=== PATIENT | male | born 1970 | race African-American/Black ===

== ENCOUNTER 2016-08-08 09:20 | Emergency (ER) | payer MEDICAID ==
[~2016-08-08] VITALS: Ht 180.3 cm; Wt 108.9 kg
[~2016-08-08 09:20] MED LIST: CARI-316 PO; HYDR-2595 PO; ZOLP10TA PO
[2016-08-08 09:29] VITALS: BP 101/67
[2016-08-08] MEDS ORDERED: KETOROLAC TROMETH 60MG/2ML VIAL IM ONE (11:00)
== END 2016-08-08 11:38 | disposition home or self-care (01) ==
LOC: ER 09:20
DX: S76.011A Strain of muscle, fascia and tendon of right hip, initial encounter (principal); M89.8X8 Other specified disorders of bone, other site; X58.XXXA Exposure to other specified factors, initial encounter; Y93.89 Activity, other specified; Y92.89 Other specified places as the place of occurrence of the external cause; Y99.8 Other external cause status
CPT/HCPCS: 73502; 96372; 99284; J1885

== ENCOUNTER 2020-10-11 10:20 | Emergency (ER) | payer MEDICAID ==
[~2020-10-11] VITALS: Ht 180.3 cm; Wt 108.9 kg
[~2020-10-11 10:20] MED LIST changes: -CARI-316 PO; +CARI350T22 PO
[2020-10-11 11:05] LABS: Basophils # (auto) 0.1 10 ^3/uL (0-0.2); Basophils % (auto) 1.3 % (0.0-2.0); Eosinophils # (auto) 0 10 ^3/uL (0-0.8); Eosinophils % (auto) 0.2 % (0.0-7.0); Hematocrit 41.4 % (41.0-53.0); Hemoglobin 14.7 g/dL (13.5-17.5); Lymphocytes # (auto) 1.5 10 ^3/uL (0.4-5.4); Mean Corpuscular Hemoglobin 32.3 pg (28.0-32.0); Mean Corpuscular Hgb Conc. 35.5 g/dL (32.0-36.0); Monocytes # (auto) 0.9 10 ^3/uL (0-1.3); Monocytes % (auto) 13.3 % (0.0-12.0); Neutrophils % (auto) 62.2 % (37.0-80.0); Red Blood Cells 4.56 10^6/uL (4.5-5.90); Red Cell Distribution Width 12.9 % (11.8-14.3); White Blood Cell 6.5 10^3/uL (4.4-10.8)
[2020-10-11 11:43] LABS: Albumin 3.8 g/dL (3.4-5.0); Anion Gap 8 (5-15); Blood Urea Nitrogen 18 mg/dL (7-18); Carbon Dioxide 26 mmol/L (21-32); Chloride 102 mmol/L (98-107); Glucose 120 mg/dL (74-106); Potassium 3.4 mmol/L (3.5-5.1); Sodium 136 mmol/L (136-145)
[2020-10-11 11:45] LABS: Urine Bacteria NONE SEEN /hpf (None Seen); Urine Blood 2+ /uL (Negative); Urine Mucus FEW (None Seen); Urine Specific Gravity 1.038 (1.001-1.035); Urine WBC 1 /hpf (0 - 3)
[2020-10-11 11:51] LABS: Alanine Aminotransferase 51 U/L (16-61); Alkaline Phosphatase 62 U/L (45-117); Aspartate Aminotransferase 63 U/L (15-37); BUN/Creatinine Ratio 13.7; Bilirubin, Total 0.9 mg/dL (0.2-1.0); GFR African American 74 mL/min; GFR Non-African American 62 mL/min; Total Protein 8.4 g/dL (6.4-8.2)
[2020-10-11] MEDS: SODIUM CHLORIDE 0.9% 1,000 ML IV ONE ×2 (14:32→14:40)
[2020-10-11] MEDS: cefTRIAXone 1GM/50ML D5W 50 ML IV ONE (14:40)
[2020-10-11] MEDS: ONDANSETRON HCL 4 MG/2 ML VIAL IV ONE (14:41)
[2020-10-11] MEDS: MORPHINE SULFATE 4 MG/ML SYR/VIAL IV ONE (14:41)
[2020-10-11 15:35] VITALS: BP 113/68
== END 2020-10-11 15:37 | disposition home or self-care (01) ==
LOC: ER 10:20
DX: R10.84 Generalized abdominal pain (principal); R11.2 Nausea with vomiting, unspecified; Z79.899 Other long term (current) drug therapy
CPT/HCPCS: 36415; 71046; 74176; 80053; 81001; 84484; 85025; 96365; 96375; 99285; J0696; J2270; J2405; J7030; 93005

== ENCOUNTER 2021-07-18 07:14 | Emergency (ER) | payer MEDICAID ==
[~2021-07-18] VITALS: Ht 180.3 cm; Wt 106.6 kg
[2021-07-18 08:09] VITALS: BP 110/76
[2021-07-18] MEDS ORDERED: PROM1SOL4 PO (08:16)
[2021-07-18] MEDS ORDERED: IBUP800T27 PO (08:16)
== END 2021-07-18 08:16 | disposition home or self-care (01) ==
LOC: ER 07:14
DX: M23.92 Unspecified internal derangement of left knee (principal); Z79.1 Long term (current) use of non-steroidal anti-inflammatories (NSAID); Z79.899 Other long term (current) drug therapy
CPT/HCPCS: 73562

== ENCOUNTER 2023-10-05 06:30 | Emergency (ER) | payer MEDICAID ==
[~2023-10-05] VITALS: Ht 180.3 cm; Wt 104.9 kg
[~2023-10-05 06:30] MED LIST changes: +CARI-578 PO; -CARI350T22 PO; +IBUP-1456 PO; +PROM1SOL4 PO
[2023-10-05 07:27] VITALS: BP 126/77; PULSE 67; RESP 18; TEMP 97.7; O2SAT 98
== END 2023-10-05 07:48 | disposition home or self-care (01) ==
LOC: ER 06:32
DX: H92.02 Otalgia, left ear (principal); Z79.899 Other long term (current) drug therapy; Z87.442 Personal history of urinary calculi